=== PATIENT | female | born 1990 | race African-American/Black ===

== ENCOUNTER 2024-08-17 08:12 | Emergency (ER) | payer BC ==
[2024-08-17 08:30] VITALS: PULSE 77
[2024-08-17 08:51] LABS: BASOPHILS PERCENT AUTO 0.3 % (0.0-1.0); EOSINOPHILS ABSOLUTE AUTO 0.2 K/mm3 (0.0-0.4); EOSINOPHILS PERCENT AUTO 1.9 % (0.0-6.0); HEMATOCRIT 38.3 % (37.0-47.0); HEMOGLOBIN 12.4 gm/dl (12.0-16.0); IMMATURE GRAN ABSOLUTE AUTO 0.05 K/mm3 (0.00-0.05); IMMATURE GRAN PERCENT AUTO 0.5 % (0.0-0.4); LYMPHOCYTES ABSOLUTE AUTO 2.9 K/mm3 (1.0-4.8); LYMPHOCYTES PERCENT AUTO 28.3 % (24.0-44.0); MEAN CORPUSCULAR HEMOGLOBIN 27.7 pg (28.0-32.0); MEAN CORPUSCULAR HGB CONC 32.4 g/dl (32.0-36.0); MEAN CORPUSCULAR VOLUME 85.7 fl (83.0-99.0); MEAN PLATELET VOLUME 11.1 fl (9.4-12.3); MONOCYTES ABSOLUTE AUTO 0.5 K/mm3 (0.0-0.8); MONOCYTES PERCENT AUTO 5.2 % (0.0-8.0); NEUTROPHILS ABSOLUTE AUTO 6.6 K/mm3 (1.8-7.7); NEUTROPHILS PERCENT AUTO 63.8 % (41.0-71.0); PLATELET COUNT,PLT 224 K/mm3 (150-400); RED BLOOD CELL COUNT 4.47 M/mm3 (4.10-5.30)
[2024-08-17] MEDS: Sodium Chloride 0.9% 1,000 ML IV STA (08:56)
[2024-08-17] MEDS: Ondansetron 4 MG/2 ML SDV IVPUSH ONE (08:57)
[2024-08-17] MEDS: HYDROmorphone 0.5 MG/0.5 ML Syringe IVPUSH ONE (08:57)
[2024-08-17] MEDS: Sodium Chloride 0.9% 10 ML Syringe FLUSH PRN ×2 (08:58→09:49)
[2024-08-17 09:00] LABS: APPEARANCE,URINE CLEAR (Clear); BILIRUBIN,URINE NEGATIVE (Negative); COLOR,URINE YELLOW (Yellow); GLUCOSE,URINE NEGATIVE (Negative); KETONES,URINE TRACE (Negative); LEUKOCYTE ESTERASE,URINE NEGATIVE (Negative); NITRITE,URINE NEGATIVE (Negative); OCCULT BLOOD,URINE 1+ (Negative); PH,URINE 5.5 (5.0-8.0); PROTEIN,URINE 1+ (Negative); UROBILINOGEN,URINE 0.2 (0.2-1.0)
[2024-08-17 09:09] LABS: ALANINE AMINOTRANSFERASE,ALT 59 U/L (14-59); ALBUMIN 3.7 g/dl (3.4-5.0); ALKALINE PHOSPHATASE 79 U/L (46-116); ANION GAP 13.9 (5-15); ASPARTATE AMNIOTRANSFERASE,AST 21 U/L (15-37); BILIRUBIN TOTAL 0.9 mg/dL (0.2-1.0); BLOOD UREA NITROGEN,BUN 7 mg/dL (7-18); BUN/CREATININE RATIO 8.8 (14-18); C-REACTIVE PROTEIN <0.05 mg/dL (<0.30); CALCIUM 8.7 mg/dL (8.5-10.1); CARBON DIOXIDE,CO2 24 mEq/L (21-32); CHLORIDE,CL 104 mEq/L (98-107); CREATININE 0.8 mg/dL (0.55-1.02); EST CRCL DRUG DOSING (CG) 81.19 mL/min; ESTIMATED GFR 98 mL/min (>60); GLUCOSE RANDOM 135 mg/dL (70-99); LIPASE 30 U/L (16-77); POTASSIUM,K 3.9 mEq/L (3.5-5.1); PROTEIN TOTAL,TP 7.5 g/dl (6.4-8.2); SODIUM,NA 138 mEq/L (136-145)
[2024-08-17 09:30] LABS: BACTERIA,URINE MODERATE /hpf (FEW); EPITHELIAL CELLS,URINE 0-5 /hpf (0-5); MUCUS,URINE MANY /hpf (FEW); WBC,URINE 0-5 /hpf (0-5)
[2024-08-17] MEDS: Iopamidol 612 MG/ML 100 ML Bottle IVPUSH ONE (09:49)
[2024-08-17] MEDS ORDERED: Hyoscyamine 0.125 MG Tab.SL ONE (10:34)
[2024-08-17] MEDS: Hyoscyamine 0.125 MG Tab.SL SL ONE (10:39)
[2024-08-17 10:41] VITALS: BP 119/88
== END 2024-08-17 10:40 | disposition home or self-care (01) ==
LOC: JD.ED 08:12
DX: K80.50 Calculus of bile duct without cholangitis or cholecystitis without obstruction (principal); Z79.899 Other long term (current) drug therapy
CPT/HCPCS: 36415; 74177; 74177-26; 76705; 76705-26; 80053; 81001; 83690; 84703; 85025; 86140; 96361; 96374; 96375; 99284; 99284-25; A9270-GY; J2405; J7030; Q9967

== ENCOUNTER 2024-08-18 02:21 | Day surgery (SDC) | payer BC ==
[2024-08-18] MEDS ORDERED: Sodium Chloride 0.9% 10 ML Syringe FLUSH PRN (02:32)
[2024-08-18] MEDS ORDERED: Naloxone 0.4 MG/ML SDV IVPUSH PRN ×2 (02:48→07:32)
[2024-08-18] MEDS: Ondansetron 4 MG/2 ML SDV IVPUSH ONE (02:56)
[2024-08-18] MEDS: Ketorolac 30 MG/ML SDV IVPUSH ONE (03:00)
[2024-08-18 03:04] LABS: BASOPHILS PERCENT AUTO 0.2 % (0.0-1.0); EOSINOPHILS PERCENT AUTO 0.1 % (0.0-6.0); HEMOGLOBIN 13.2 gm/dl (12.0-16.0); IMMATURE GRAN ABSOLUTE AUTO 0.06 K/mm3 (0.00-0.05); IMMATURE GRAN PERCENT AUTO 0.4 % (0.0-0.4); LYMPHOCYTES ABSOLUTE AUTO 2.2 K/mm3 (1.0-4.8); LYMPHOCYTES PERCENT AUTO 14.2 % (24.0-44.0); MEAN CORPUSCULAR HEMOGLOBIN 28.1 pg (28.0-32.0); MEAN CORPUSCULAR VOLUME 85.3 fl (83.0-99.0); MEAN PLATELET VOLUME 10.8 fl (9.4-12.3); MONOCYTES ABSOLUTE AUTO 0.7 K/mm3 (0.0-0.8); MONOCYTES PERCENT AUTO 4.4 % (0.0-8.0); NEUTROPHILS ABSOLUTE AUTO 12.4 K/mm3 (1.8-7.7); NEUTROPHILS PERCENT AUTO 80.7 % (41.0-71.0); PLATELET COUNT,PLT 227 K/mm3 (150-400); RED BLOOD CELL COUNT 4.69 M/mm3 (4.10-5.30); WHITE BLOOD CELL COUNT,WBC 15.37 K/mm3 (3.9-11.3)
[2024-08-18] MEDS: HYDROmorphone 0.5 MG/0.5 ML Syringe IVPUSH ONE ×2 (03:05→07:37)
[2024-08-18 03:29] LABS: ANION GAP 14.4 (5-15); BILIRUBIN TOTAL 1.4 mg/dL (0.2-1.0); CALCIUM 9.2 mg/dL (8.5-10.1); EST CRCL DRUG DOSING (CG) 64.95 mL/min; POTASSIUM,K 3.4 mEq/L (3.5-5.1)
[2024-08-18 03:32] LABS: LACTIC ACID 1.8 mmol/L (0.4-2.0)
[2024-08-18 05:16] LABS: APPEARANCE,URINE CLEAR (Clear); BILIRUBIN,URINE NEGATIVE (Negative); COLOR,URINE YELLOW (Yellow); GLUCOSE,URINE NEGATIVE (Negative); KETONES,URINE 1+ (Negative); LEUKOCYTE ESTERASE,URINE NEGATIVE (Negative); NITRITE,URINE NEGATIVE (Negative); OCCULT BLOOD,URINE NEGATIVE (Negative); PROTEIN,URINE 1+ (Negative)
[2024-08-18 05:47] LABS: BACTERIA,URINE RARE /hpf (FEW); MUCUS,URINE MODERATE /hpf (FEW); RBC,URINE 0-5 /hpf (0-5); WBC,URINE 0-5 /hpf (0-5)
[2024-08-18] MEDS: Sodium Chloride 0.9% 1,000 ML IV ONE ×2 (06:18→07:34)
[2024-08-18] MEDS ORDERED: Propofol 200 MG/20 ML SDV ONE ×3 (08:12→10:13)
[2024-08-18] MEDS ORDERED: fentaNYL 250 MCG/5 ML SDV ONE (08:13)
[2024-08-18] MEDS ORDERED: dexmedeTOMIDine HCl 200 MCG/2 ML SDV ONE ×2 (08:17→10:06)
[2024-08-18] MEDS ORDERED: Ropivacaine 0.5% 5 MG/ML 30 ML SDV ONE (08:17)
[2024-08-18] MEDS ORDERED: ceFAZolin 2 GM in Sodium Chloride 0.9% 100 ML IV ONE (09:00)
[2024-08-18] MEDS ORDERED: ceFAZolin 2 GM Vial IVPUSH ONE (09:30)
[2024-08-18] MEDS ORDERED: Ondansetron 4 MG/2 ML SDV ONE (10:06)
[2024-08-18] MEDS ORDERED: Sugammadex Sodium 200 MG/2 ML VIAL IV ONE (10:06)
[2024-08-18] MEDS ORDERED: Rocuronium 50 MG/5 ML Vial ONE (10:06)
[2024-08-18] MEDS ORDERED: Dexamethasone 4 MG/ML 5 ML MDV ONE (10:06)
[2024-08-18] MEDS ORDERED: Ketorolac 15 MG/ML SDV ONE (10:06)
[2024-08-18] MEDS: Ropivacaine 0.5% 5 MG/ML 30 ML SDV ONE (10:07)
[2024-08-18] MEDS ORDERED: Lactated Ringers 1,000 ML IV ONE ×2 (10:30→11:15)
[2024-08-18] MEDS ORDERED: Ondansetron 4 MG/2 ML SDV IVPUSH PRN (12:00)
[2024-08-18] MEDS ORDERED: HYDROmorphone 0.5 MG/0.5 ML Syringe IVPUSH PRN (12:00)
[2024-08-18] MEDS ORDERED: fentaNYL 100 MCG/2 ML SDV IVPUSH PRN (12:00)
[2024-08-18 14:40] VITALS: BP 104/69; PULSE 57
== END 2024-08-18 14:32 | disposition home or self-care (01) ==
LOC: JD.ED 02:21 → JD.SDS 09:03
PROVIDERS: ATTEND Surgery
DX: K80.00 Calculus of gallbladder with acute cholecystitis without obstruction (principal)
CPT/HCPCS: 00790; 36415; 64488; 76705; 76705-26; 80053; 81001; 83605; 83690; 85025; 86850; 86900; 86901; 96374; 96375; 96376; 99140; 99284; 99285-25; J0690; J1100; J1885; J2405; J2704; J2795; J3010; J3490; J7030; J7120